=== PATIENT | male | born 1935 | race Caucasian/White ===

== ENCOUNTER 2021-05-11 06:52 | Day surgery (SDC) | payer MEDICARE, SELFPAY ==
--- NOTE | 2021-05-07 07:59 | MHC.SHP ---
Pre-Procedural Eval Section A Date of Service: 05/07/21 The patient is an INPATIENT: No Changes since office visit: No Cold of Flu in the past 2 weeks, No New Medical Problems, No Changes in Medication and No Patient answered all questions The History & Physical has been completed within 30 days and I have reviewed it.: Yes Section B Chief Complaint: cataract Allergies: Allergies Allergy/AdvReac Type Severity Reaction Status Date / Time salsalate Allergy Rash Verified 05/06/21 10:05 Plan Diagnosis/Plan: Unchanged I have reviewed the history and physical and performed a pertinent physical examination on my patient. No changes have occurred unless specified.
[2021-05-07 10:36] VITALS: BMI 31.5
--- NOTE | 2021-05-08 08:29 | HO.ANESPROP2 ---
Documented by User: Samantha Garcia NP 05/08/21 08:31 HPI - Anesthesia Eval Consult details Narrative: 85yo M Right Cataract Extraction IOL Insertion No prev cataract on record PCP cleared Eliquis for new afib and PE [facility] Past Medical History Medical History (Updated 05/06/21 @ 10:02 by Franchesca Gamboa, RN) Atrial fibrillation Bilateral pulmonary embolism Chronic sciatica COPD (chronic obstructive pulmonary disease) HTN (hypertension) Lung nodules Neurogenic bladder, flaccid On anticoagulant therapy Rosacea Surgical History Surgical History (Updated 05/06/21 @ 10:02 by Franchesca Gamboa RN) History of AAA (abdominal aortic aneurysm) repair 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 If so, by whom?: No Are you DNR?: No Advance Directives: No Advance Directives Information Provided: No Advance Directives on File: No Recently lost weight without trying: No Eating poorly because of decreased appetite: No Nutrition Risks: No Nutritional Risk Meds Allergies Allergy/AdvReac Type Severity Reaction Status Date / Time salsalate Allergy Rash Verified 05/06/21 10:05 Home Medications Medication Instructions Recorded Confirmed Last Taken Type albuterol sulfate 90 mcg/actuation 2 puff INHALATION Q6H PRN 05/05/21 05/06/21 Unknown History aerosol inhaler apixaban 2.5 mg tablet (Eliquis) 1 tab PO BID 05/05/21 05/06/21 Unknown History losartan 100 mg tablet 1 tab PO DAILY 05/05/21 05/06/21 Unknown History tamsulosin 0.4 mg capsule 1 cap PO BEDTIME 05/05/21 05/06/21 Unknown History tiotropium 2.5 mcg-olodaterol 2.5 2 puff PO DAILY 05/05/21 05/06/21 Unknown History mcg/actuation mist for inhalation (Stiolto Respimat) cyanocobalamin (vitamin B-12) 1,000 mcg PO DAILY 05/06/21 05/06/21 Unknown History 1,000 mcg tablet (Vitamin B-12) metoprolol succinate 25 mg 25 mg PO DAILY 05/06/21 05/06/21 Unknown History tablet,extended release 24 hr Exam Exam Date and Time: May 08, 2021 0829 Height,Weight and Vital Signs: Height 5 ft 10 in Weight 99.79 kg Assessment and Plan Assessment Anesthesia Assessment: Chart Reviewed Documented by User: Liset Parr MD 05/11/21 08:00 HPI - Anesthesia Eval Consult details Narrative: 85yo M Right Cataract Extraction IOL Insertion No prev cataract on record PCP cleared Eliquis for new afib and PE. 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 If so, by whom?: No Are you DNR?: No Advance Directives: No Advance Directives Information Provided: No Advance Directives on File: No Recently lost weight without trying: No Eating poorly because of decreased appetite: No Nutrition Risks: No Nutritional Risk Meds Allergies Allergy/AdvReac Type Severity Reaction Status Date / Time salsalate Allergy Rash Verified 05/06/21 10:05 Home Medications Medication Instructions Recorded Confirmed Last Taken Type albuterol sulfate 90 mcg/actuation 2 puff INHALATION Q6H PRN 05/05/21 05/06/21 Unknown History aerosol inhaler apixaban 2.5 mg tablet (Eliquis) 1 tab PO BID 05/05/21 05/06/21 Unknown History losartan 100 mg tablet 1 tab PO DAILY 05/05/21 05/06/21 Unknown History tamsulosin 0.4 mg capsule 1 cap PO BEDTIME 05/05/21 05/06/21 Unknown History tiotropium 2.5 mcg-olodaterol 2.5 2 puff PO DAILY 05/05/21 05/06/21 Unknown History mcg/actuation mist for inhalation (Stiolto Respimat) cyanocobalamin (vitamin B-12) 1,000 mcg PO DAILY 05/06/21 05/06/21 Unknown History 1,000 mcg tablet (Vitamin B-12) metoprolol succinate 25 mg 25 mg PO DAILY 05/06/21 05/06/21 Unknown History tablet,extended release 24 hr Exam Height,Weight and Vital Signs: Height 5 ft 10 in Weight 99.79 kg Vital Signs Temp Pulse Resp BP Pulse Ox 05/11/21 07:16 97.7 F 114 H 16 110/70 96 Airway Mallampati Class: II TM Dist: >3cm Neck ROM: Full Loose/Missing/Broken Teeth: Yes (Edentulous. Dentures out) Heart: Irregularly irregular Lungs: Diminished. CTAB Assessment and Plan Assessment Anesthesia Assessment: Anesthesia Plan Discussed Final Anesthetic Review Family History of Problems with Anesthesia: No History of Problems with Anesthesia: No NPO: Yes ASA Class: III Final Preanesthetic Review: No Changes in Pt Med Stat, Meds/Allgs Chart Reviewed, Consent Obtained/Reviewed and Anes Risks/Benef Reviewed Patient Risk: Intermediate Procedure Risk: Low Assessment/Block/Sedation in SS: Assess/Block/Sedation-SS Anesthetic Plan Anesthetic Plan: MAC: Disposition: Standard PACU
[2021-05-11 07:16] VITALS: BP 110/70; PULSE 114; RESP 16; TEMP 36.5; O2SAT 96
[2021-05-11] MEDS: Tetracaine HCl/PF 0.5% Oph Sol 4 ML DROPS 1 DROP EYE-RIGHT (07:16)
[2021-05-11] MEDS: Lactated Ringers 500 ML 50 ML IV (07:18)
[2021-05-11] MEDS: Tropicamide 1 % Ophth Sol 3 ML BTL 1 DROP EYE-RIGHT ×3 (07:18→07:24)
[2021-05-11] MEDS: Phenylephrine HCL 2.5% Oph SoL 2 ML BOTTLE 1 DROP EYE-RIGHT ×3 (07:19→07:26)
--- NOTE | 2021-05-11 09:11 | HO.PNOPHT ---
Ophthalmology Procedure Procedure Date of Service: 05/11/21 Ophthalmology Viscoelastic: Healon Duet Dual Pack Pro Ophthalmology Lenses: TECNIS ZXR00 (21) Procedure Notes: PREOPERATIVE DIAGNOSIS: Decreased visual acuity right eye secondary to cataract POSTOPERATIVE DIAGNOSIS: Same PROCEDURE: Right cataract extraction with multifocal intraocular lens insertion SURGEON: Laurent Kirby M.D. ANESTHESIA: Topical/MAC ESTIMATED BLOOD LOSS: None COMPLICATIONS: None After obtaining informed consent, the patient was brought to the operating room suite and placed in the supine position. After adequate sedation per anesthesia, topical drops of Tetracaine were given to the right eye. The eye was then prepped and draped in the usual sterile fashion. The operating room microscope was then positioned over the operative eye and a lid speculum placed. A paracentesis was created. Viscoelastic was then instilled into the anterior chamber. A three plane incision was then created temporally, utilizing a 2.85 mm keratome. Capsulotomy forceps were then utilized to create a circular tear capsulotomy. Hydrodissection and hydrodelineation were carried out until adequate mobilization of the nucleus occurred. Phacoemulsification was then utilized to remove the dense central nucleus followed by removal of the cortical material utilizing the automated aspiration irrigation unit. Viscoelastic was instilled into the posterior capsular bag followed by placement of a multifocal posterior chamber intraocular lens without difficulty. The residual Viscoelastic was then removed utilizing the automated IA machine. The wound was checked and found to be watertight. The patient tolerated the procedure well and the lid speculum was removed. Intracameral injection of Vigamox 0.1 mL followed by a subtenon injection of Kenalog-40 0.2 mL were administered. The patient will be seen in the a.m.
[2021-05-11 09:45] VITALS: BP 117/63; PULSE 92; RESP 19; TEMP 36.6; O2SAT 100
== END 2021-05-11 10:01 | disposition home or self-care (01) ==
PROVIDERS: PCP Internal Medicine; Visit Provider Ophthalmology
PROC: (CPT 66984; principal; 2021-05-11 09:20)
DX: H25.11 Age-related nuclear cataract, right eye (principal); H52.4 Presbyopia; H43.23 Crystalline deposits in vitreous body, bilateral; I10 Essential (primary) hypertension; J44.9 Chronic obstructive pulmonary disease, unspecified; I48.91 Unspecified atrial fibrillation; Z79.01 Long term (current) use of anticoagulants; Z79.899 Other long term (current) drug therapy; Z79.51 Long term (current) use of inhaled steroids; Z88.8 Allergy status to other drugs, medicaments and biological substances; Z87.891 Personal history of nicotine dependence
CPT/HCPCS: 66984; J2250; J3010; J3300; V2788

== ENCOUNTER 2021-05-25 08:03 | Day surgery (SDC) | payer MEDICARE, SELFPAY ==
[2021-05-07 10:39] VITALS: BMI 31.5
--- NOTE | 2021-05-21 16:36 | MHC.SHP ---
Pre-Procedural Eval Section A Date of Service: 05/21/21 The patient is an INPATIENT: Yes Changes since office visit: No Cold of Flu in the past 2 weeks, No New Medical Problems, No Changes in Medication and No Patient answered all questions The History & Physical has been completed within 30 days and I have reviewed it.: Yes Section B Chief Complaint: cataract Allergies: Allergies Allergy/AdvReac Type Severity Reaction Status Date / Time salsalate Allergy Rash Verified 05/06/21 10:05 Plan Diagnosis/Plan: Unchanged I have reviewed the history and physical and performed a pertinent physical examination on my patient. No changes have occurred unless specified.
--- NOTE | 2021-05-22 08:40 | HO.ANESPROP2 ---
Documented by User: Samantha Garcia NP 05/22/21 08:41 HPI - Anesthesia Eval Consult details Narrative: 85yo M Left Cataract Extraction IOL Insertion PCP Cleared Right eye 05/11/2021 with TIVA: Fentanyl 50, Midaz 1 Eliquis for new afib and PE. 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 If so, by whom?: No Are you DNR?: No Advance Directives: No Advance Directives Information Provided: No Advance Directives on File: No Recently lost weight without trying: No Eating poorly because of decreased appetite: No Nutrition Risks: No Nutritional Risk Meds Allergies Allergy/AdvReac Type Severity Reaction Status Date / Time salsalate Allergy Rash Verified 05/06/21 10:05 Home Medications Medication Instructions Recorded Confirmed Last Taken Type albuterol sulfate 90 mcg/actuation 2 puff INHALATION Q6H PRN 05/05/21 05/06/21 Unknown History aerosol inhaler apixaban 2.5 mg tablet (Eliquis) 1 tab PO BID 05/05/21 05/06/21 Unknown History losartan 100 mg tablet 1 tab PO DAILY 05/05/21 05/06/21 Unknown History tamsulosin 0.4 mg capsule 1 cap PO BEDTIME 05/05/21 05/06/21 Unknown History tiotropium 2.5 mcg-olodaterol 2.5 2 puff PO DAILY 05/05/21 05/06/21 Unknown History mcg/actuation mist for inhalation (Stiolto Respimat) cyanocobalamin (vitamin B-12) 1,000 mcg PO DAILY 05/06/21 05/06/21 Unknown History 1,000 mcg tablet (Vitamin B-12) metoprolol succinate 25 mg 25 mg PO DAILY 05/06/21 05/06/21 Unknown History tablet,extended release 24 hr Exam Exam Date and Time: May 22, 2021 0840 Height,Weight and Vital Signs: Height 5 ft 10 in Weight 99.79 kg Assessment and Plan Assessment Anesthesia Assessment: Chart Reviewed Final Anesthetic Review Family History of Problems with Anesthesia: No History of Problems with Anesthesia: No Documented by User: Liset Parr MD 05/25/21 10:51 [facility] Past Medical History Medical History (Updated 05/06/21 @ 10:02 by Franchesca Gamboa RN) Atrial fibrillation Bilateral pulmonary embolism Chronic sciatica COPD (chronic obstructive pulmonary disease) HTN (hypertension) Lung nodules Neurogenic bladder, flaccid On anticoagulant therapy Rosacea Surgical History Surgical History (Updated 05/06/21 @ 10:02 by Franchesca Gmaboa, RN) History of AAA (abdominal aortic aneurysm) repair 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 If so, by whom?: No Are you DNR?: No Advance Directives: No Advance Directives Information Provided: No Advance Directives on File: No Recently lost weight without trying: No Eating poorly because of decreased appetite: No Nutrition Risks: No Nutritional Risk Meds Allergies Allergy/AdvReac Type Severity Reaction Status Date / Time salsalate Allergy Rash Verified 05/06/21 10:05 Home Medications Medication Instructions Recorded Confirmed Last Taken Type albuterol sulfate 90 mcg/actuation 2 puff INHALATION Q6H PRN 05/05/21 05/06/21 Unknown History aerosol inhaler apixaban 2.5 mg tablet (Eliquis) 1 tab PO BID 05/05/21 05/06/21 Unknown History losartan 100 mg tablet 1 tab PO DAILY 05/05/21 05/06/21 Unknown History tamsulosin 0.4 mg capsule 1 cap PO BEDTIME 05/05/21 05/06/21 Unknown History tiotropium 2.5 mcg-olodaterol 2.5 2 puff PO DAILY 05/05/21 05/06/21 Unknown History mcg/actuation mist for inhalation (Stiolto Respimat) cyanocobalamin (vitamin B-12) 1,000 mcg PO DAILY 05/06/21 05/06/21 Unknown History 1,000 mcg tablet (Vitamin B-12) metoprolol succinate 25 mg 25 mg PO DAILY 05/06/21 05/06/21 Unknown History tablet,extended release 24 hr Exam Height,Weight and Vital Signs: Height 5 ft 10 in Weight 99.79 kg Vital Signs Temp Pulse Resp BP Pulse Ox 05/25/21 10:24 100 05/25/21 09:49 98 F 102 H 18 131/88 92 Airway Mallampati Class: II TM Dist: >3cm Neck ROM: Full Loose/Missing/Broken Teeth: Yes (Dentures out) Heart: Irregularly irregular Lungs: CTAB Assessment and Plan Assessment Anesthesia Assessment: Anesthesia Plan Discussed Final Anesthetic Review NPO: Yes ASA Class: III Final Preanesthetic Review: No Changes in Pt Med Stat, Meds/Allgs Chart Reviewed, Consent Obtained/Reviewed and Anes Risks/Benef Reviewed Patient Risk: Intermediate Procedure Risk: Low Assessment/Block/Sedation in SS: Assess/Block/Sedation-SS Anesthetic Plan Anesthetic Plan: MAC: Disposition: Standard PACU
[2021-05-25 09:49] VITALS: BP 131/88; PULSE 102; RESP 18; TEMP 36.6; O2SAT 92
[2021-05-25] MEDS: Lactated Ringers 500 ML 50 ML IV (10:08)
[2021-05-25] MEDS: Tropicamide 1 % Ophth Sol 3 ML BTL 1 DROP EYE-LEFT ×3 (10:08→10:09)
[2021-05-25] MEDS: Phenylephrine HCL 2.5% Oph SoL 2 ML BOTTLE 1 DROP EYE-LEFT ×3 (10:08→10:09)
[2021-05-25] MEDS: Albuterol Sulfate (0.083%) 2.5 MG/3 ML VIAL.NEB INHALE (10:21)
[2021-05-25 10:24] VITALS: PULSE 100; O2SAT 94
--- NOTE | 2021-05-25 11:35 | P.PCNO_ITS ---
Ophthalmology Procedure Procedure Date of Service: 05/25/21 Ophthalmology Viscoelastic: Healon Duet Dual Pack Pro Ophthalmology Lenses: TECNIS ZXR00 (20) Procedure Notes: PREOPERATIVE DIAGNOSIS: Decreased visual acuity left eye s econdary to cataract POSTOPERATIVE DIAGNOSIS: Same PROCEDURE: Left cataract extraction with intraocular lens insertion SURGEON: Laurent Kirby M.D. ANESTHESIA: Topical/MAC ESTIMATED BLOOD LOSS: None COMPLICATIONS: None After obtaining informed consent, the patient was brought to the operation room suite and placed in the supine position. After adequate sedation per anesthesia, topical drops of Tetracaine were given to the left eye. The eye was then prepped and draped in the usual sterile fashion. The operating room microscope was then positioned over the operative eye and a lid speculum placed. A paracentesis was created. Viscoelastic was then instilled into the anterior chamber. A three plane incision was then created temporally, utilizing a 2.85 mm keratome. Capsulotomy forceps were then utilized to create a circular tear capsulotomy. Hydrodissection and hydrodelineation were carried out until adequate mobilization of the nucleus occurred. Phacoemulsification was then utilized to remove the dense central nucleus followed by removal of the cortical material utilizing the automated aspiration irrigation unit. Viscoat elastic was instilled into the posterior capsular bag followed by placement of a posterior chamber intraocular lens without difficulty. The residual Viscoat elastic was then removed utilizing the automated IA machine. The wound was check and found to be watertight. The patient tolerated the procedure well and the lid speculum was removed. Intracameral injection of Vigamox 0.1 mL followed by a subtenon injection of Kenalog-40 0.2 mL were administered. The patient will be seen in the a.m.
--- NOTE | 2021-05-25 11:36 | P.PCNO_ITS ---
Ophthalmology Procedure Procedure Date of Service: 05/25/21 Ophthalmology Viscoelastic: Healon Duet Dual Pack Pro Ophthalmology Lenses: TECNIS ZXR00 (20) Procedure Notes: PREOPERATIVE DIAGNOSIS: Decreased visual acuity left eye s econdary to cataract POSTOPERATIVE DIAGNOSIS: Same PROCEDURE: Left cataract extraction with multifocal intraocular lens insertion SURGEON: Laurent Kirby M.D. ANESTHESIA: Topical/MAC ESTIMATED BLOOD LOSS: None COMPLICATIONS: None After obtaining informed consent, the patient was brought to the operation room suite and placed in the supine position. After adequate sedation per anesthesia, topical drops of Tetracaine were given to the left eye. The eye was then prepped and draped in the usual sterile fashion. The operating room microscope was then positioned over the operative eye and a lid speculum placed. A paracentesis was created. Viscoelastic was then instilled into the anterior chamber. A three plane incision was then created temporally, utilizing a 2.85 mm keratome. Capsulotomy forceps were then utilized to create a circular tear capsulotomy. Hydrodissection and hydrodelineation were carried out until adequate mobilization of the nucleus occurred. Phacoemulsification was then utilized to remove the dense central nucleus followed by removal of the cortical material utilizing the automated aspiration irrigation unit. Viscoelastic was instilled into the posterior capsular bag followed by placement of a multifocal posterior chamber intraocular lens without difficulty. The residual Viscoelastic was then removed utilizing the automated IA machine. The wound was check and found to be watertight. The patient tolerated the procedure well and the lid speculum was removed. Intracameral injection of Vigamox 0.1 mL followed by a subtenon injection of Kenalog-40 0.2 mL were administered. The patient will be seen in the a.m.
[2021-05-25 12:04] VITALS: BP 117/55; PULSE 95; RESP 18; TEMP 37; O2SAT 96
== END 2021-05-25 12:16 | disposition home or self-care (01) ==
PROVIDERS: PCP Internal Medicine; Visit Provider Ophthalmology
PROC: (CPT 66984; principal; 2021-05-25 11:10)
DX: H25.12 Age-related nuclear cataract, left eye (principal); H52.4 Presbyopia; H43.23 Crystalline deposits in vitreous body, bilateral; I10 Essential (primary) hypertension; J44.9 Chronic obstructive pulmonary disease, unspecified; I48.91 Unspecified atrial fibrillation; I26.99 Other pulmonary embolism without acute cor pulmonale; Z79.01 Long term (current) use of anticoagulants; Z79.51 Long term (current) use of inhaled steroids; Z79.899 Other long term (current) drug therapy; Z87.891 Personal history of nicotine dependence
CPT/HCPCS: 66984; 94640; J2250; J3010; J3300; V2788